=== PATIENT | male | born 1990 | race Hispanic/Latino ===

== ENCOUNTER 2017-05-24 00:06 | Emergency (ER) | payer OTHER ==
[2017-05-24] MEDS ORDERED: IBUPROFEN 800 MG TAB ONE (00:33)
== END 2017-05-24 01:16 | disposition home or self-care (01) ==
LOC: EDH 00:06
DX: M54.31 Sciatica, right side (principal); R22.2 Localized swelling, mass and lump, trunk; F41.1 Generalized anxiety disorder; R09.81 Nasal congestion; Z72.0 Tobacco use
CPT/HCPCS: 72170